=== PATIENT | male | born 1935 | race Caucasian/White ===

== ENCOUNTER 2023-02-18 19:08 | Emergency (ER) | payer OTHER ==
[~2023-02-18] VITALS: Ht 165.1 cm; Wt 62.6 kg
[2023-02-18 19:19] VITALS: BP_SYST 144; PULSE 70; RESP 17; TEMP 97.7; O2SAT 98
[2023-02-18] MEDS ORDERED: ACETAMINOPHEN 500 MG TABLET PO ONE (19:30)
[2023-02-18] MEDS ORDERED: KETOROLAC TROMETHAMINE 30 MG VIAL IM ONE (21:00)
[2023-02-18] MEDS ORDERED: IBUP-1969 PO (21:21)
[2023-02-18] MEDS ORDERED: DICL20GE TP (21:21)
[2023-02-18 21:41] VITALS: BP_SYST 156; PULSE 66; RESP 20; TEMP 97.7; O2SAT 96
== END 2023-02-18 21:41 | disposition home or self-care (01) ==
LOC: SED 19:08
DX: S42.295A Other nondisplaced fracture of upper end of left humerus, initial encounter for closed fracture (principal); S00.81XA Abrasion of other part of head, initial encounter; G31.84 Mild cognitive impairment of uncertain or unknown etiology; Z79.899 Other long term (current) drug therapy; W01.0XXA Fall on same level from slipping, tripping and stumbling without subsequent striking against object, initial encounter; Y93.89 Activity, other specified; Y92.89 Other specified places as the place of occurrence of the external cause; Y99.8 Other external cause status
CPT/HCPCS: 99285; 70450; 73030; 76376; 96372; J1885

== ENCOUNTER 2023-09-02 18:51 | Emergency (ER) | payer OTHER ==
[~2023-09-02] VITALS: Ht 165.1 cm; Wt 64.0 kg
[2023-09-02 18:51] VITALS: BP_SYST 146; PULSE 78; RESP 18; TEMP 98.2; O2SAT 98
[~2023-09-02 18:51] MED LIST: DICL20GE TP; IBUP-1969 PO
[2023-09-02] MEDS: KETOROLAC TROMETHAMINE 30 MG VIAL IM ONE (20:02)
[2023-09-02] MEDS ORDERED: DICL20GE TP (20:07)
[2023-09-02] MEDS ORDERED: IBUP-1969 PO (20:07)
[2023-09-02] MEDS ORDERED: TRAM50TA2 PO (20:07)
[2023-09-02] MEDS ORDERED: ACET-2634 PO (20:07)
[2023-09-02 20:25] VITALS: BP_SYST 146; PULSE 78; RESP 18; TEMP 98.2; O2SAT 98
== END 2023-09-02 20:25 | disposition home or self-care (01) ==
LOC: SED 18:51
DX: S43.401A Unspecified sprain of right shoulder joint, initial encounter (principal); S50.01XA Contusion of right elbow, initial encounter; Z79.899 Other long term (current) drug therapy; X50.0XXA Overexertion from strenuous movement or load, initial encounter; Y93.89 Activity, other specified; Y92.89 Other specified places as the place of occurrence of the external cause; Y99.8 Other external cause status
CPT/HCPCS: 99283; 73060; 73080; 96372; J1885